=== PATIENT | female | born 1985 | race Hispanic/Latino ===

== ENCOUNTER 2022-03-05 18:17 | Emergency (ER) | payer SELFPAY ==
[2022-03-05 18:32] VITALS: BP 120/80
[2022-03-06] MEDS ORDERED: ONDANSETRON 4 MG/2 ML INJ IV ONE (01:22)
[2022-03-06] MEDS ORDERED: DICYCLOMINE 20 MG/2 ML INJ IM ONE (01:22)
[2022-03-06] MEDS ORDERED: diphenhydrAMINE 50 MG/ML VIAL IV ONE (01:22)
--- NOTE | 2022-03-06 02:26 | Emergency Department Report ---
ED General Adult HPI - General Chief complaint: Nausea/Vomiting/Diarrhea Stated complaint: NAUSEA Time Seen by Provider: 03/06/22 01:22 Source: EMS Mode of arrival: Stretcher Limitations: No Limitations - History of Present Illness Initial comments: Patient is a 36-year-old female with history of anxiety and depression no SI or HI today. With history of abdominal spasms who presents for abdominal spasms nausea today after a flight from [place] to [place]. States usually trigger his previous stroke, however terminal flight today triggered abdominal spasms. Nausea is controlled with Zofran and Benadryl, however patient does not have Bentyl in her possession. She did receive 1 p.o. in the emergency department 3 days ago. Did not get prescription filled. There is no fevers no chills no dizziness or lightheadedness at this time. There is no chest pain. Patient denies other symptoms Severity scale (0 -10): 0 - Related Data Previous Rx's Medication Instructions Recorded Last Taken Type Dicyclomine [Bentyl] 10 mg PO QID PRN #40 capsule 03/06/22 Unknown Rx Allergies Allergy/AdvReac Type Severity Reaction Status Date / Time No Known Allergies Allergy Unverified 03/05/22 18:25 ED Review of Systems ROS: Stated complaint: NAUSEA Other details as noted in HPI Constitutional: denies: chills, fever Eyes: denies: eye pain, eye discharge, vision change ENT: denies: ear pain, throat pain Respiratory: denies: cough, shortness of breath, wheezing Cardiovascular: denies: chest pain, palpitations Endocrine: no symptoms reported Gastrointestinal: abdominal pain, nausea, vomiting, other (Abdominal spasms). denies: diarrhea, constipation, melena Genitourinary: denies: urgency, dysuria, discharge Musculoskeletal: denies: back pain, joint swelling, arthralgia Skin: denies: rash, lesions Neurological: denies: headache, weakness, paresthesias Psychiatric: denies: anxiety, depression Hematological/Lymphatic: denies: easy bleeding, easy bruising ED Past Medical Hx - Past Medical History Additional medical history: CYCLIC VOMITING - Medications Home Medications: Home Medications Medication Instructions Recorded Confirmed Last Taken Type Dicyclomine [Bentyl] 10 mg PO QID PRN #40 capsule 03/06/22 Unknown Rx ED Physical Exam - General Limitations: No Limitations General appearance: alert, in no apparent distress - Head Head exam: Present: atraumatic, normocephalic - Eye Eye exam: Present: normal appearance, EOMI Pupils: Present: normal accommodation - ENT ENT exam: Present: mucous membranes moist - Neck Neck exam: Present: normal inspection, full ROM. Absent: tenderness, lymphadenopathy - Respiratory Respiratory exam: Present: normal lung sounds bilaterally. Absent: respiratory distress, wheezes, stridor, chest wall tenderness - Cardiovascular Cardiovascular Exam: Present: regular rate, normal rhythm, normal heart sounds. Absent: systolic murmur, diastolic murmur, rubs, gallop - GI/Abdominal GI/Abdominal exam: Present: soft, normal bowel sounds. Absent: distended, tenderness, guarding, rebound, rigid, bruit, hernia - Expanded GI/Abdominal Exam Expanded GI/Abdominal exam: Absent: psoas sign, obturator sign, heel tap sign, Patrick's sign, Rovsing's sign, tenderness at [place], ascites - Rectal Rectal exam: Present: deferred - Extremities Exam Extremities exam: Present: normal inspection, full ROM, normal capillary refill. Absent: tenderness, pedal edema - Back Exam Back exam: Present: normal inspection, full ROM. Absent: tenderness, CVA tenderness (R), CVA tenderness (L) - Neurological Exam Neurological exam: Present: alert, oriented X3, CN II-XII intact, normal gait, reflexes normal - Expanded Neurological Exam Expanded Patient oriented to: Present: person, place, time Motor strength exam: RUE: 5, LUE: 5, RLE: 5, LLE: 5 Best Eye Response ([place]): (4) open spontaneously Best Motor Response ([place]): (6) obeys commands Best Verbal Response ([place]): (5) oriented [place] Total: 15 - Psychiatric Psychiatric exam: Present: normal affect, normal mood, anxious - Skin Skin exam: Present: warm, dry, intact, normal color. Absent: rash, erythema, urticaria, vesicles, pallor, ecchymosis ED Course Vital Signs 03/05/22 18:20 Temperature 97.1 F L Pulse Rate 97 H Respiratory 16 Rate Blood Pressure 120/80 [Left] O2 Sat by Pulse 98 Oximetry ED Medical Decision Making - Medical Decision Making Patient tolerating p.o. intake without problems at this time. Symptoms are resolved medications given in ED. Plan DC to home with prescriptions. Follow- up primary care doctor in 2 to 3 days. Patient verbalized agreement understanding of discharge plan patient DC'd home in stable condition at this time. Critical care attestation.: If time is entered above; I have spent that time in minutes in the direct care of this critically ill patient, excluding procedure time. ED Disposition Clinical Impression: Abdominal spasms Disposition: 01 HOME / SELF CARE / HOMELESS Is pt being admited?: No Does the pt Need Aspirin: No Condition: Stable Instructions: Abdominal Pain, Adult, [id number] Additional Instructions: Follow-up with your primary care doctor in 2 to 3 days. Return to emergency department should symptoms worsen. Prescriptions: Dicyclomine [Bentyl] 10 mg PO QID PRN #40 capsule PRN Reason: abdominal spasms Referrals: [facility] [Provider Group] - 3-5 Days Forms: Work/School Release Form(ED) Time of Disposition: 02:30
== END 2022-03-06 02:49 | disposition home or self-care (01) ==
LOC: ED 18:17
DX: R25.2 Cramp and spasm (principal); R10.9 Unspecified abdominal pain; R11.15 Cyclical vomiting syndrome unrelated to migraine
CPT/HCPCS: 96372; 96374; 96375; 99283; J0500; J1200; J2405